=== PATIENT | male | born 1990 | race Caucasian/White ===

== ENCOUNTER 2017-08-31 18:42 | Emergency (ER) | payer BC ==
[2017-08-31] MEDS ORDERED: HYDROmorphone 0.5 MG/0.5 ML SYRINGE IM STA (19:26)
--- NOTE | 2017-08-31 19:33 | EDM.PDOC ---
ED HPI GENERAL MEDICAL PROBLEM - General Chief Complaint: Upper Extremity Injury/Pain Stated Complaint: PAIN IN RIGHT HAND Time Seen by Provider: 08/31/17 19:06 Source of Information: Reports: Patient, Significant Other (Fiance) History Limitations: Reports: No Limitations - History of Present Illness INITIAL COMMENTS - FREE TEXT/NARRATIVE: The patient states that he cut his right hand second extensor tendon while fishing with his uncle in [place] on 08/24/2017. He was seen by a physician in a small town in [place], where a single suture was placed. He then followed up with Dr. Reed, a surgeon in [place], [place], yesterday, where more extensive surgery was performed. He was discharged home with a prescription for Butler, 1 to 2 tablets every 4 hours, #20. He states that he has been elevating and icing his right hand, and taking the Butler, 2 tablets every 4 hours, as prescribed. Nevertheless, he states that his pain is inadequately controlled. He states that he called his surgeon's office, and they told him that they are not permitted to call or fax in prescriptions for narcotics. They offered to mail him a prescription that he could fill here, but that if he needed something stronger in the meantime, to go to the ER. The patient took ibuprofen once yesterday, but none since. In addition to the Butler prescribed by his surgeon, the patient also has some Tylenol with codeine and caffeine that was prescribed by the doctor in [place]. The patient has taken a few of these tablets in addition to the Butler. The patient does not have a PCP. Right Hand Pain Score (Numeric/FACES): 9 - Related Data Allergies Allergy/AdvReac Type Severity Reaction Status Date / Time No Known Allergies Allergy Verified 08/31/17 19:02 Past Medical History Musculoskeletal History: Reports: Arthritis (lower back) - Past Surgical History HEENT Surgical History: Reports: Oral Surgery ([place] teeth extraction) Musculoskeletal Surgical History: Reports: Other (See Below) (Right hand second extensor tendon repair 08/30/2017, per Dr. Reed, [place], [place]) Social & Family History - Tobacco Use Smoking Status *Q: Never Smoker - Alcohol Use Alcohol Use History: No - Recreational Drug Use Recreational Drug Use: No - Living Situation & Occupation Living situation: Reports: Single (Engaged), with Significant Other (Fiance) Occupation: Employed ([employer]) Review of Systems - Review of Systems Review Of Systems: ROS reveals no pertinent complaints other than HPI. ED EXAM, GENERAL - Physical Exam Exam: See Below Exam Limited By: No Limitations General Appearance: Alert Extremities: Other (Right second finger is in an extended position in an AlumaFoam splint, and the hand, including the splint, are wrapped with Kerlix. The end of the second finger is warm, with normal appearance and normal sensation to palpation.) Course - Vital Signs Last Recorded V/S: Last Vital Signs Temp 36.3 C 08/31/17 18:54 Pulse 65 08/31/17 18:54 Resp 16 08/31/17 18:54 BP 129/77 08/31/17 18:54 Pulse Ox 97 08/31/17 18:54 - Orders/Labs/Meds Orders: Active Orders 24 hr Category Date Time Status HYDROmorphone [Dilaudid] Med 08/31/17 19:26 Stat 1 mg IM ONETIME STA - Re-Assessments/Exams Free Text/Narrative Re-Assessment/Exam: 08/31/17 19:27 The patient is having postoperative pain, following repair of his right second extensor tendon yesterday. He states that he has been icing and elevating the hand, and taking his Butler, 2 tablets every 4 hours, as prescribed. He has not been taking any ibuprofen. On examination, neurovascular status of the right finger appears to be intact. I explained it would be inappropriate for an emergency department to prescribe a new narcotic one day after being prescribed a different narcotic by his surgeon. I explained that the emergency department is not his single prescriber - his surgeon is. His surgeon's office offered to mail a prescription to him, that he can fill here in [place], which I recommended he have them follow through on. In the meantime, I'm recommending that the patient start taking over -the-counter ibuprofen. For today's purposes, I will have the nurse give him a intramuscular injection of Dilaudid, but no new prescription for narcotics. Departure - Departure Time of Disposition: 19:29 Disposition: Home, Self-Care 01 Condition: Good Clinical Impression: Postoperative pain - Discharge Information Referrals: PCP,None [Primary Care Provider] - Additional Instructions: You were seen in the emergency room for postoperative pain, inadequately treated by Butler that was prescribed by your surgeon. As explained, unfortunately, emergency departments do not perform pain management. Any additional prescriptions for pain medication regarding this surgical case needs to come from your surgeon. You were given an intramuscular injection of Dilaudid in the ER. Going forward, we recommend that you start taking [id number] ibuprofen, 2- 3 tablets (400-600 mg) every 8 hours, with food. Continue to ice and elevate your right hand. Continue to take your previously prescribed hydrocodone/acetaminophen, 2 tablets up to every 4 hours, as needed for pain not relieved by ibuprofen. If you need a stronger narcotic, have your surgeon in [place] forward a prescription for something stronger to you. If any other problems, please do not hesitate to return to the ER. - My Orders Last 24 Hours: My Active Orders 08/31/17 19:26 HYDROmorphone [Dilaudid] 1 mg IM ONETIME STA - Assessment/Plan Last 24 Hours: My Active Orders 08/31/17 19:26 HYDROmorphone [Dilaudid] 1 mg IM ONETIME STA
== END 2017-08-31 19:39 | disposition home or self-care (01) ==
LOC: JD.ED 18:42
DX: G89.18 Other acute postprocedural pain (principal); M79.641 Pain in right hand; Z98.890 Other specified postprocedural states
CPT/HCPCS: 96372; 99283; J1170

== ENCOUNTER 2020-10-26 03:04 | Emergency (ER) | payer BC, OTHER ==
[2020-10-26] MEDS ORDERED: Albuterol/Ipratropium 3.0-0.5 MG/3 ML Neb Soln NEB ONE (03:30)
[2020-10-26] MEDS ORDERED: predniSONE 20 MG Tab PO ONE (03:30)
--- NOTE | 2020-10-26 03:40 | EDM.PDOC ---
ED HPI GENERAL MEDICAL PROBLEM - General Chief Complaint: Respiratory Problem Stated Complaint: SOB Time Seen by Provider: 10/26/20 03:10 Source of Information: Reports: Patient History Limitations: Reports: No Limitations - History of Present Illness INITIAL COMMENTS - FREE TEXT/NARRATIVE: Patient is a 30-year-old male who woke up having respiratory distress which seems of lasted at its worse for about 10 minutes he has improved prior to arrival. Patient noted that he was wheezing before he went to bed tonight. He has had no cough or fever or chills. He states he has had Covid previously and that 4 days ago he was having body aches and some fevers but had gotten better in the meantime. Patient is not a cigarette smoker and does not feel he is in respiratory distress currently. He denies having any bloody or tarry stools or any swellings to his ankles. He has never had similar symptoms in the past. He has no history of any asthma or respiratory disease or problems. No one else is currently sick at home. He has taken nothing for his current symptoms. Onset: Today Duration: Improving Location: Reports: Chest Severity: Moderate Improves with: Reports: None Worsens with: Reports: None Associated Symptoms: Reports: No Other Symptoms - Related Data Allergies Allergy/AdvReac Type Severity Reaction Status Date / Time shellfish derived Allergy Hives Verified 10/26/20 03:26 Home Meds: Home Meds predniSONE [Prednisone] 20 mg PO DAILY #5 tablet 10/26/20 [Rx] Past Medical History Musculoskeletal History: Reports: Arthritis - Infectious Disease History Infectious Disease History: Reports: Novel Coronavirus - Past Surgical History HEENT Surgical History: Reports: Oral Surgery Musculoskeletal Surgical History: Reports: Other (See Below) Other Musculoskeletal Surgeries/Procedures:: tendon repair Social & Family History - Tobacco Use Tobacco Use Status *Q: Never Tobacco User - Living Situation & Occupation Living situation: Reports: Single (Engaged), with Significant Other (Fiance) Occupation: Employed ([employer]) ED ROS GENERAL - Review of Systems Review Of Systems: Comprehensive ROS is negative, except as noted in HPI. ED EXAM, GENERAL - Physical Exam Exam: See Below Exam Limited By: No Limitations General Appearance: Alert, No Apparent Distress Throat/Mouth: Normal Inspection, Normal Oropharynx Head: Normocephalic Neck: Normal Inspection, Supple, Full Range of Motion Respiratory/Chest: No Respiratory Distress, Lungs Clear, Normal Breath Sounds. No: Respiratory Distress, Decreased Breath Sounds, Wheezing Cardiovascular: Regular Rate, Rhythm, No Edema, No JVD GI/Abdominal: Normal Bowel Sounds, No Distention Back Exam: Normal Inspection Extremities: Normal Inspection, No Pedal Edema Neurological: Alert, Oriented, Normal Cognition Psychiatric: Normal Affect Skin Exam: Warm, Dry, Normal Color Lymphatic: No Adenopathy Course - Vital Signs Text/Narrative:: Patient feels much better after the DuoNeb treatment. He feels he can breathe without any difficulty. He is still not coughing at this point. I am giving him a albuterol inhaler with spacer and will give him a prescription for a few days worth of 20 mg prednisone. Patient instructed to return to ER if his symptoms were to worsen or not improving with meds and otherwise follow-up with PCP if symptoms continue. Last Recorded V/S: Last Vital Signs Temp 98.9 F 10/26/20 03:17 Pulse 54 L 10/26/20 03:17 Resp 16 10/26/20 03:17 BP 119/81 10/26/20 03:17 Pulse Ox 93 L 10/26/20 03:38 - Orders/Labs/Meds Orders: Active Orders 24 hr Category Date Time Status RT Aerosol Therapy [RC] ASDIRECTED Care 10/26/20 03:30 Active RT Post Treatment Assessment [RC] Click to Edit Care 10/26/20 03:57 Ordered RT Pre-Treatment Assessment [RC] Click to Edit Care 10/26/20 03:57 Ordered COVID-19/FLU A+B [MOLEC] Stat Lab 10/26/20 03:32 Ordered Albuterol [Proventil HFA] Med 10/26/20 03:56 Ordered 2 gm INH Q6H PRN Medication Orders Albuterol (Albuterol 6.7 Gm Inhaler) 2 gm INH Q6H PRN PRN Reason: Dyspnea Meds: Medications Generic Name Dose Route Start Last Admin Trade Name Freq PRN Reason Stop Dose Admin Albuterol 2 gm 10/26/20 03:56 Albuterol 6.7 Gm Inhaler INH Q6H PRN Dyspnea Discontinued Medications Generic Name Dose Route Start Last Admin Trade Name Freq PRN Reason Stop Dose Admin Albuterol/Ipratropium 3 ml 10/26/20 03:30 10/26/20 03:36 Albuterol/Ipratropium 3.0-0.5 Mg/3 Ml Neb Soln NEB 10/26/20 03:31 3 ml ONETIME ONE Administration Prednisone 20 mg 10/26/20 03:30 10/26/20 03:50 Prednisone 20 Mg Tab PO 10/26/20 03:31 20 mg ONETIME ONE Administration Departure - Departure Time of Disposition: 04:00 Disposition: Home, Self-Care 01 Condition: Good Clinical Impression: Bronchospasm, acute - Discharge Information Prescriptions: predniSONE [Prednisone] 20 mg PO DAILY #5 tablet Instructions: Shortness of Breath, Adult, [id number] Referrals: PCP,None [Primary Care Provider] - Forms: ED Department Discharge Additional Instructions: Meds as needed. Return to ER symptoms are worse or not improving with medication. Follow-up with PCP if symptoms continue. Sepsis Event Note (ED) - Evaluation Sepsis Screening Result: No Definite Risk - Focused Exam Vital Signs: Vital Signs Temp Pulse Resp BP Pulse Ox Pulse Ox 10/26/20 03:38 93 L 10/26/20 03:17 98.9 F 54 L 16 119/81 98 - My Orders Last 24 Hours: My Active Orders 10/26/20 03:30 RT Aerosol Therapy [RC] ASDIRECTED 10/26/20 03:32 COVID-19/FLU A+B [MOLEC] Stat 10/26/20 03:56 Albuterol [Proventil HFA] 2 gm INH Q6H PRN 10/26/20 03:57 RT Post Treatment Assessment [RC] Click to Edit RT Pre-Treatment Assessment [RC] Click to Edit - Assessment/Plan Last 24 Hours: My Active Orders 10/26/20 03:30 RT Aerosol Therapy [RC] ASDIRECTED 10/26/20 03:32 COVID-19/FLU A+B [MOLEC] Stat 10/26/20 03:56 Albuterol [Proventil HFA] 2 gm INH Q6H PRN 10/26/20 03:57 RT Post Treatment Assessment [RC] Click to Edit RT Pre-Treatment Assessment [RC] Click to Edit
[2020-10-26] MEDS ORDERED: Albuterol 6.7 GM Inhaler INH PRN (03:56)
[2020-10-26 04:12] LABS: CORONAVIRUS COVID-19 NAA NEGATIVE (NEGATIVE)
== END 2020-10-26 04:14 | disposition home or self-care (01) ==
LOC: JD.ED 03:04
DX: J98.01 Acute bronchospasm (principal); M19.90 Unspecified osteoarthritis, unspecified site; Z91.013 Allergy to seafood; Z20.822 Contact with and (suspected) exposure to COVID-19
CPT/HCPCS: 0240U; 94640; 99283; A9270; J7512; J7620-GY